=== PATIENT | male | born 2000 | race Caucasian/White ===

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

== ENCOUNTER 2022-07-15 11:50 | Emergency (ER) | payer OTHER, MEDICAID ==
[~2022-07-15] VITALS: Ht 188 cm; Wt 122.5 kg
[2022-07-15 12:44] LABS: APPEARANCE,URINE CLEAR (CLEAR); BILIRUBIN,URINE NEGATIVE (NEGATIVE); COLOR,URINE YELLOW (YELLOW); GLUCOSE, URINE (UA) NEGATIVE (NEGATIVE); KETONES,URINE NEGATIVE (NEGATIVE); LEUKOCYTE ESTERASE ,URINE NEGATIVE Leu/uL (NEGATIVE); NITRATE,URINE NEGATIVE (NEGATIVE); OCCULT BLOOD,URINE NEGATIVE (NEGATIVE); PH,URINE 5.5 (5.0-8.0); PROTEIN,URINE 20 mg/dL (NEGATIVE)
[2022-07-15 12:52] LABS: MUCUS,URINE RARE LPF (None Seen)
[2022-07-15 15:10] VITALS: BP 128/68
== END 2022-07-15 15:11 | disposition home or self-care (01) ==
LOC: EDH 11:50
DX: S00.211A Abrasion of right eyelid and periocular area, initial encounter (principal); W22.8XXA Striking against or struck by other objects, initial encounter; Y93.89 Activity, other specified; Y92.89 Other specified places as the place of occurrence of the external cause; Y99.8 Other external cause status; R10.9 Unspecified abdominal pain
CPT/HCPCS: 74018; 81001